=== PATIENT | male | born 1960 | race Caucasian/White ===

== ENCOUNTER → 2018-04-02 13:25 | Outpatient (CLI) | payer MEDICARE ==
[2012-11-04 12:18] VITALS: BMI 24.2
[~2018-04-02 13:25] MED LIST: AMITRIPTYLINE100 MG PO; ASPIRIN EC81 M1 PO; BACTRIM DS TABL1 TAB PO; NORVASC5 MG PO; OMEPRAZOLE20 M1 PO
[2018-04-28 06:05] VITALS: BMI 23.4
== END | disposition home or self-care (01) ==
LOC: D.LABREF 13:25
DX: N39.0 Urinary tract infection, site not specified (principal)

== ENCOUNTER 2018-04-28 05:40 | Day surgery (SDC) | payer MEDICARE ==
[2018-04-27 09:33] LABS: HEMATOCRIT 45.8 % (42.0-54.0); HEMOGLOBIN 15.9 g/dL (13.5-17.5); MCH 33.9 pg (26.0-34.0); MCHC 34.7 g/dL (31.0-37.0); MCV 97.7 fL (80.0-100.0); MEAN PLATELET VOLUME 9.8 fL (7.4-10.4); RBC 4.69 10x6/uL (4.20-6.10); WBC 7.6 10x3/uL (4.8-10.8)
[2018-04-27 09:45] LABS: ANION GAP 9.5 mmol/L (8-16); CARBON DIOXIDE 29.8 mmol/L (21.0-32.0); CREATININE - SERUM 1.4 mg/dL (0.6-1.3); POTASSIUM - SERUM 4.3 mmol/L (3.5-5.1)
[~2018-04-28] VITALS: Ht 172.7 cm; Wt 69.9 kg
--- NOTE | ~2018-04-28 | OP ---
PATIENT NAME: Jackie BERGER MEDICAL RECORD: [id number] :56 LOCATION:.[facility] ADMISSION DATE: SURGEON: DIPAK WAGONER MD DATE OF OPERATION: 04/28/2018 SURGEON: Dipak Wagoner MD ANESTHESIA: MAC by Guille Lovelace CRNA. PREOPERATIVE DIAGNOSIS: Elevated PSA of 5.28. PROCEDURE: Transrectal ultrasound and prostate biopsy. FINDINGS: 43 gram prostate with intraprostatic stones, no hypoechoic areas. BLOOD LOSS: None. CLINICAL HISTORY: This is a 57-year-old male, who was found to have an elevated PSA of 5.28 on recent testing. He does not have a family history of prostate cancer. He comes today to have a prostate biopsy performed. He is allergic to NORCO. He was given Ancef aviation manager to the OR. DESCRIPTION OF PROCEDURE: The patient was given IV sedation. He was then placed into lithotomy position. A transrectal ultrasound probe was introduced and prostate size measurements were obtained. The prostate size was estimated at 43 grams. We then performed sextant biopsies with at least 3 cores from every sextant. Once all the specimens were obtained, the procedure was terminated. The patient was awakened and brought back to his preoperative holding area. I will see him in followup next week to review the pathology with him. TRANSINT:[id number] Voice Confirmation ID: [id number] DOCUMENT ID: [id number] DIPAK WAGONER MD at 1532 CC: [id number] DICTATION DATE: 04/28/18812 HARDWOOD FALLER: 04/28/18 1119 PRE [facility] [address] [place] [address]
[2018-04-28 06:05] VITALS: BP 105/71; Ht 172.7 cm; Wt 69.9 kg
== END 2018-04-28 23:00 | disposition home or self-care (01) ==
LOC: D.OPS 05:40
PROVIDERS: Anesthesiology
DX: R97.20 Elevated prostate specific antigen [PSA] (principal)

== ENCOUNTER → 2018-06-01 10:14 | Outpatient (CLI) | payer MEDICARE ==
[2018-04-28 06:05] VITALS: BMI 23.4
== END | disposition home or self-care (01) ==
LOC: D.NM 10:14
DX: C61 Malignant neoplasm of prostate (principal)

== ENCOUNTER → 2019-02-07 18:15 | Outpatient (CLI) | payer MEDICARE ==
[2018-04-28 06:05] VITALS: BMI 23.4
== END | disposition home or self-care (01) ==
LOC: D.LABREF 18:15
PROVIDERS: ATTEND Urology
DX: R31.9 Hematuria, unspecified (principal); R82.5 Elevated urine levels of drugs, medicaments and biological substances; D72.829 Elevated white blood cell count, unspecified

== ENCOUNTER 2019-03-08 09:30 | Day surgery (SDC) | payer MEDICARE ==
[2019-03-07 15:36] LABS: BASOPHILS 0.4 % (0-2); EOSINOPHILS 7.2 % (0-7); HEMATOCRIT 44.2 % (42.0-54.0); HEMOGLOBIN 15.4 g/dL (13.5-17.5); IMMATURE GRANULOCYTES 0.1 % (0-5); LYMPHOCYTES 32.7 % (15-50); MCH 32.9 pg (26.0-34.0); MCHC 34.8 g/dL (31.0-37.0); MCV 94.4 fL (80.0-100.0); MEAN PLATELET VOLUME 9.7 fL (7.4-10.4); MONOCYTES 8.5 % (2-11); NEUTROPHILS 51.1 % (40-80); PLATELET COUNT 209 10x3/uL (130-400); RBC 4.68 10x6/uL (4.20-6.10); RDW 14.7 % (11.5-14.5); WBC 8.2 10x3/uL (4.8-10.8)
[2019-03-07 15:44] LABS: APTT 26.2 SECONDS (22.8-39.4); INR 0.95 (0.85-1.17); PROTIME 12.2 SECONDS (11.6-15.0)
[~2019-03-08] VITALS: Ht 172.7 cm; Wt 69.4 kg
[~2019-03-08 09:30] MED LIST changes: +ALBUTEROL SULF8.5 GM INH; +AMOXICILLIN500 M1 PO; +FLOMAX0.4 MG PO; +NORVASC10 MG PO; -NORVASC5 MG PO; +PROTONIX40 MG PO
[2019-03-08 13:38] VITALS: BP 128/87; Ht 172.7 cm; Wt 69.4 kg
[2019-03-08] MEDS ORDERED: OXYBUTYNIN CHLOR5 M1 PO (18:12)
--- NOTE | 2019-03-08 19:37 | OP ---
PATIENT NAME: Jackie BERGER MEDICAL RECORD: [id number] :56 LOCATION:[facility] ADMISSION DATE: SURGEON: VIOLETTE WAGONER MD DATE OF OPERATION: 03/08/2019 SURGEON: Violette Wagoner MD ANESTHESIA: TIVA by Dr. William Taveras. DIAGNOSES: Prostate cancer, Aayush score 3+3, stage T1C, bladder outlet obstruction, recurrent urinary tract infections, incomplete bladder emptying with postvoid residual of 194 mL. IPSS score is 32 and quality of life score is 6. PROCEDURE: UroLift times 6. FINDINGS: Bilateral lateral lobe obstruction with no median lobe. Heavily trabeculated bladder with cellules and diverticula. No bladder tumors. ESTIMATED BLOOD LOSS: Minimal. CLINICAL HISTORY: This is a 58-year-old male, who has recurrent urinary tract infections and bladder outlet obstruction. He was found to have an elevated PSA of 5.28. On transrectal ultrasound, the prostate size was 43 grams. He had a pathology report on the biopsy of Aayush 3+3 cancer. He has a stage T1C cancer. This is currently managed with observation. He has quite significant voiding symptoms including incomplete bladder emptying with a postvoid residual of 194 mL. He wishes to have the UroLift procedure done. He is ALLERGIC TO NORCO. We gave him Ancef insulation manager to the OR. DESCRIPTION OF PROCEDURE: The patient was given IV sedation. He was placed in lithotomy position and prepped and draped. The UroLift scope was introduced. He has a long obstructive bilateral lateral lobe hyperplasia. We started with 2 units in the bladder neck region. They were placed, 1.5 cm distal to the bladder neck at the anterolateral sulcus. One unit was placed on each side. We then placed 2 more units at the level of the verumontanum at the end of the lateral sulcus with 1 unit placed on each side. Looking with the obturator, we saw that there was still occlusion of the urethra in the mid portion of the urethra. We put 2 more units at the mid level of the urethra at the mid depth. With these [address], he had a nice open anterior urethral channel. A 16-Central African Simmons catheter was then put into the bladder and put to bag drainage. The balloon was inflated with 10 mL of sterile water. I will see him next week in followup to have the catheter removed for a voiding trial. TRANSINT:[id number] Voice Confirmation ID: [id number] DOCUMENT ID: [id number] VIOLETTE WAGONER MD at 1937 CC: [id number] DICTATION DATE: 03/08/191728 SALES AGENT FINANCIAL REPORT SERVICE: 03/08/191917 [facility] [address] [place] [id number]
--- NOTE | 2019-03-08 19:40 | NUR ---
DEMONSTRATED TO PATIENT AND SPOUSE HOW TO CHANGE ELIZABETH DRAINAGE BAG TO LEG BAG, ELIZABETH CARE EDUCATION GIVEN, SPOUSE STATES SHE WORKS AT A [employer] AND HAS PERFORMED THIS TASK AND IS FAMILIAR WITH IT. WRIST PIV DC'D WITH TIP INTACT. DISCHARGE INSTRUCTIONS REVIEWED WITH PATIENT AND SPOUSE. DISCHARGED HOME VIA WHEELCHAIR TO PRIVATE VEHICLE WITH SPOUSE AT 1950
== END 2019-03-08 19:50 | disposition home or self-care (01) ==
LOC: D.OPS 09:30 → D.PAN 13:15 → D.OPS 14:00 → D.PAN 14:00 → D.OPS 19:50
PROVIDERS: Anesthesiology; ATTEND Urology
DX: C61 Malignant neoplasm of prostate (principal); N40.1 Benign prostatic hyperplasia with lower urinary tract symptoms; N13.8 Other obstructive and reflux uropathy; N32.89 Other specified disorders of bladder; N32.3 Diverticulum of bladder; Z01.812 Encounter for preprocedural laboratory examination

== ENCOUNTER → 2019-04-04 08:01 | Outpatient (CLI) | payer MEDICARE ==
[2019-03-08 13:38] VITALS: BMI 23.7
[~2019-04-04 08:01] MED LIST changes: +OXYBUTYNIN CHLOR5 M1 PO
== END | disposition home or self-care (01) ==
LOC: D.US 03-31 09:00
PROVIDERS: ATTEND Internal Medicine Gastroenterology
DX: R10.10 Upper abdominal pain, unspecified (principal); R11.2 Nausea with vomiting, unspecified; R63.4 Abnormal weight loss

== ENCOUNTER → 2019-06-28 12:18 | Outpatient (CLI) | payer MEDICARE, OTHER ==
[2019-03-08 13:38] VITALS: BMI 23.7
== END | disposition home or self-care (01) ==
LOC: D.RT 12:18
PROVIDERS: ATTEND Internal Medicine Pulmonary Disease
DX: J44.9 Chronic obstructive pulmonary disease, unspecified (principal)

== ENCOUNTER → 2019-07-21 09:10 | Outpatient (CLI) | payer MEDICARE, OTHER ==
[2019-03-08 13:38] VITALS: BMI 23.7
== END | disposition home or self-care (01) ==
LOC: D.CT 07-18 08:30
PROVIDERS: ATTEND Internal Medicine Pulmonary Disease
DX: R93.89 Abnormal findings on diagnostic imaging of other specified body structures (principal)

== ENCOUNTER → 2021-02-20 08:35 | Outpatient (CLI) | payer MEDICARE, OTHER ==
[2019-03-08 13:38] VITALS: BMI 23.7
--- NOTE | ~2021-02-20 | EC ---
PATIENT:Jackie BERGER DATE OF SERVICE: 02/20/21 SEX: M MEDICAL RECORD: [id number] DATE OF : 56 LOCATION:[facility] AGE OF PATIENT: 60 ADMISSION DATE: 02/20/21 REFERRING PHYSICIAN: INTERPRETING PHYSICIAN: LIZ DARLING MD ECHOCARDIOGRAM REPORT ECHO CHARGES 4 ECHO COMPLETE Date: 02/20/21 CLINICAL DIAGNOSIS: ANGINA/HEART MURMUR ECHOCARDIOGRAPHIC MEASUREMENTS (adult normal given) AC root (d.<3.7cm) 3.8 cm LV Septum d (<1.2 cm> 1.2 cm Valve Excursion 1.5 cm LV Septum (systole) 1.5 cm Left Atria (s.<4.0cm> 3.3 cm LVPW d(<1.2cm) 1.7 cm RV (d.<2.3cm) 3.5 cm LVPW (sytole) 1.8 cm LV diastole(<5.6CM) 4.1 cm MV E-F(>70mm/sec) cm LV systole 3.0 cm LVOT Diameter 1.9 cm MV exc.(>10mm) 1.5 cm Est.ejection fraction (50-75%) % DOPPLER: LVIT cm/sec A 66.0 cm/sec E 82.0 cm/sec LA cm/sec RVSP 20 mmHg LVOT 114 cm/sec AOP1/2T m/s Asc. Ao 136 cm/sec RVOT 89 cm/sec RA cm/sec PA 95 cm/sec AV Gradient Peak 7.38 mmHg AV Mean 4.08 mmHg AV Area 2.6 cm MV Gradient Peak 2.00 mmHg MV Mean 0.80 mmHg MV Area cm COMMENTS: Burial Vault Setter: 2 MARTHA PERAZA Employment Officer: 3 Dr. Morgan TAPE# PACS Pericardial Effusion N DATE OF SERVICE: FINDINGS: Borderline LVH. LV internal dimension is normal. Wall motion is normal. EF is greater than or equal to 55%. Aortic valve is tricuspid. No evidence of stenosis by Doppler interrogation. Left atrium is normal at 3.3 cm. Mitral valve shows no prolapse. Trace MR. Right side is grossly normal. Trace TR. TRANSINT:[id number] Voice Confirmation ID: [id number] DOCUMENT ID: [id number] ECHOCARDIOGRAM REPORT [id number] Jackie BERGER LIZ DARLING MD CC: [id number] DICTATION DATE: 02/20/21 1639 SEED LABORATORY ASSISTANT: 02/21/21 0014 DEP CLI 02/20/21 [place] [id number] [place] [id number]
== END | disposition home or self-care (01) ==
LOC: D.HCCARDIO 02-12 09:00 → D.HCCECHO 02-12 09:30 → D.HCCARDIO 02-12 09:30
PROVIDERS: ATTEND Internal Medicine Interventional Cardiology
DX: I20.9 Angina pectoris, unspecified (principal); R01.1 Cardiac murmur, unspecified; I48.91 Unspecified atrial fibrillation

== ENCOUNTER → 2021-02-27 08:21 | Outpatient (CLI) | payer MEDICARE, OTHER ==
[2019-03-08 13:38] VITALS: BMI 23.7
== END | disposition home or self-care (01) ==
LOC: D.HCCARDIO 08:21
PROVIDERS: ATTEND Internal Medicine Cardiovascular Disease
DX: I20.9 Angina pectoris, unspecified (principal)

== ENCOUNTER 2021-03-20 06:38 | Day surgery (SDC) | payer MEDICARE, OTHER ==
[~2021-03-20] VITALS: Ht 172.7 cm; Wt 72.4 kg
--- NOTE | ~2021-03-20 | HEMODYNAMI ---
PATIENT:Jackie BERGER MEDICAL RECORD: [id number] : 56 LOCATION:[facility] ADMISSION DATE: 03/20/21 Generatedon:18:55 Patient name: Jackie BERGER Patient #: [id number] SSN: : 1960 Date of study: 03/20/2021 Page: Of Hemodynamic Procedure Report Patient Data Patient Demographics Procedure consent was obtained First Name: Jackie Gender: Male Last Name: AB : 1960 Middle Initial: J Age: 60 year(s) Patient #: [id number] Race: Unknown Additional ID: [id number] Contact details [address]: [address] [place] [address] State: [place] City: [place] Zip code: [address] Admission Admission Data Admission Date: 03/20/2021 Admission Time: 6:38 Procedure Procedure Types Cath Procedure Diagnostic Procedure LHC LHC w/Coronaries FFR/IVUS FFR Initial Sedation Charges Moderate Sedation 10-24 minutes Procedure Description Procedure Date Procedure Date: 03/20/2021 Procedure Start Time: 8:30 Procedure End Time: 8:51 Procedure Staff Name Function Javier Cline RT Monitor [employer] RT Scrub Carrington Abreu RN Nurse Philip Rocha MD Performing Physician Procedure Data Cath Procedure Fluoroscopy Diagnostic fluoroscopy Total fluoroscopy Time: 7.6 time: 7.6 min min Diagnostic fluoroscopy Total fluoroscopy dose: 534 dose: 534 mGy mGy Contrast Material Contrast Material Type Amount (ml) Isovue 370 109 Entry Location Entry Primary Successful Side Size Upsize Upsize Entry Closure Rodrigues ccessful Closure Location (Fr) 1 (Fr) 2 (Fr) Remarks Device Remarks Radial Right 6 Fr Mechanical artery Short Compression Estimated blood loss: 5 ml Diagnostic catheters Device Type Used For End Catheter Placement DIAGNOSTIC [place] 110cm 5 LV Angiography Fr catheter ([id number]) Procedure Complications No complications Procedure Medications Medication Administration Route Dosage 0.9% NaCl I.V. 100 ml/hr Oxygen etCO2 Nasal cannula 2 l/min Heparin Flush Bag added to field 2 bags (1000units/500ml NS) Lidocaine 2% added to field 20 Versed I.V. 1 mg Fentanyl I.V. 50 mcg Versed I.V. 1 mg Fentanyl I.V. 50 mcg Versed I.V. 1 mg Fentanyl I.V. 50 mcg Versed I.V. 1 mg Fentanyl I.V. 50 mcg Heparin Bolus I.V. 2000 units Hemodynamics Rest Heart Rate: 84 (bpm) Pressure Samples Time Site Value (mmHg) Purpose Heart Use Rate(bpm) 8:35 LV 92/3,7 Snapshot 86 8:35 LV 92/1,5 Snapshot 70 Gradients Valve Time Site Site Mean SEP/DFP Peak To Heart Use 1 2 (mmHg) (sec/min) Peak Rate (mmHg) (bpm) Aortic 8:35 LV AO 91 Snapshots Pre Cath Intra NCS Post Cath Vital Signs Time Heart Resp SPO2 etCO2 NIBP (mmHg) Rhythm Pain Sedation Rate (ipm) (%) (mmHg) Status Level (bpm) 8:13:13 98 0 137/91(111) NSR 0 (11) 10(A) , No pain 8:17:23 98 24.1 135/95(121) NSR 0 (11) 10(A) , No pain 8:21:31 90 16 96 16.5 132/96(113) NSR 0 (11) 10(A) , No pain 8:25:41 86 13 95 28.6 129/85(108) NSR 0 (11) 10(A) , No pain 8:29:49 93 10 97 1.5 110/89(101) NSR 0 (11) 10(A) , No pain 8:33:54 93 10 91 0 107/76(101) NSR 0 (11) 10(A) , No pain 8:38:00 98 11 91 0.7 106/69(86) NSR 0 (11) 10(A) , No pain 8:42:04 96 11 92 10.5 105/75(100) NSR 0 (11) 10(A) , No pain 8:46:08 93 10 93 9 98/74(93) NSR 0 (11) 10(A) , No pain 8:50:09 95 12 93 18.8 107/74(95) NSR 0 (11) 10(A) , No pain Medications Time Medication Route Dose Verified Delivered Reason Notes Effectiveness by by 8:19:07 0.9% NaCl I.V. 100 Philip Carrington used for ml/hr [facility] Chris Abreu RN procedure 8:19:54 Oxygen etCO2 2 Philip Carrington used for Nasal l/min [facility] Chris Abreu RN procedure cannula 8:20:02 Heparin Flush added 2 Philip Philip used for Bag to bags [facility] procedure (1000units/500ml field MD HEREDIA NS) 8:20:10 Lidocaine 2% added 20ml Philip Philip for local to vial [facility] anesthetic field MD HEREDIA 8:27:25 Versed I.V. 1 mg Philip Carrington for sedation [facility] Chris Abreu RN, MD 8:27:30 Fentanyl I.V. 50 Philip Carrington for sedation mcg [facility] Chris Abreu RN, MD 8:29:10 Versed I.V. 1 mg Philip Carrington for sedation [facility] Chris Abreu RN, MD 8:29:14 Fentanyl I.V. 50 Philip Josey for sedation mcg [facility] Chris Abreu RN, MD 8:31:11 Versed I.V. 1 mg Philip Carrington for sedation [facility] Chris Abreu RN, MD 8:31:15 Fentanyl I.V. 50 Philip Carrington for sedation mcg [facility] Chris Abreu RN, MD 8:33:21 Versed I.V. 1 mg Philip Carrington for sedation [facility] Chris Abreu RN, MD 8:33:25 Fentanyl I.V. 50 Philip Carrington for sedation mcg [facility] Chris Abreu RN, MD 8:39:08 Heparin Bolus I.V. 2000 Philip Josey for units [facility] Chris Abreu RN anticoagulation Procedure Log Time Note 7:59:08 Procedure Status Elective Heart Cath (OP). 7:59:11 Carrington Abreu RN sent for patient. Start room use. 7:59:13 Time tracking: Regular hours (M-F 7:00 - 5:00) 7:59:18 Plan of Care:Hemodynamics will remain stable., Cardiac rhythm will remain stable., Comfort level will be maintained., Respiratory function will remain adequate., Patient/ family verbilizes understanding of procedure., Procedure tolerated without complication., Recovers from procedure without complications.. 8:03:55 Patient received from Pre/Post Procedure Room to [facility] 1 Alert and oriented. Tansferred to table in Supine position. 8:03:56 Warm blankets applied, and elissa hugger turned on for patient comfort. 8:04:03 Signed procedure consent form obtained from patient. 8:04:03 Correct patient and procedure confirmed by team. 8:04:04 ECG and BP/O2 sat monitors applied to patient. 8:08:12 Vital chart was started 8:17:13 Baseline sample Acquired. 8:18:31 Baseline sample Acquired. 8:18:35 Rhythm: sinus rhythm 8:18:38 Full Disclosure recording started 8:18:41 H&P Date Dictated: 03/20/2021 H&P Addendum completed by physician on day of procedure. (MUST COMPLETE FOR ALL OUTPATIENTS). 8:18:52 Pre-procedure instructions explained to patient. 8:18:52 Pre-op teaching completed and patient verbalized understanding. 8:18:54 Family in patients room. 8:18:58 Patient NPO since Midnight. 8:19:05 Is the patient allergic to Iodine/contrast media? No. 8:19:07 0.9% NaCl 100 ml/hr I.V. was administered by Carrington Abreu RN; used for procedure; Verbal order read back and verified. 8:19:13 Is patient on blood thinner?No 8:19:16 Patient diabetic? No. 8:19:54 Oxygen 2 l/min etCO2 Nasal cannula was administered by Carrington Abreu RN; used for procedure; Verbal order read back and verified. 8:20:02 Heparin Flush Bag (1000units/500ml NS) 2 bags added to field was administered by Philip Rocha MD; used for procedure; Verbal order read back and verified. 8:20:10 Lidocaine 2% 20ml vial added to field was administered by Philip Rocha MD; for local anesthetic; Verbal order read back and verified. 8:21:04 ----Pre-sedation anethsthesia assessment.---- 8:21:07 Previous problem with sedation/anesthesia? No ? 8:21:09 Snore? Yes 8:21:16 Sleep apnea? Yes 8:21:18 Deviated septum? No 8:21:20 Opens mouth fully? Yes 8:21:21 Sticks out tongue? Yes 8:21:26 Airway obstruction? Yes COPD 8:21:30 Dentures? No ? 8:21:35 Pre procedure: right dorsailis pedis pulse 2+ Normal; easily identifiable; not easily obliterated 8:21:41 Modified Acosta's test Ulnar < 7 seconds 8:22:30 Patient pain scale 0/10 ?. 8:22:34 IV patent on arrival in left antecubital with 0.9% NaCl at [facility]. 8:22:39 Lab results completed and on chart. 8:25:22 Risk of Mortality: 0.1 8:25:26 Risk of blood transfusion: 1.2 8:25:29 Risk of AMRIT: 1.4 8:25:33 Right Radial & Right Groin area was prepped with chlora-prep and draped in sterile fashion 8:25:35 Alarms reviewed by R. N. 8:25:35 Sharps counted by scrub and verified by R.N. 8:25:36 Physician arrived 8:25:40 --------ALL STOP TIME OUT------ 8:25:40 Final Timeout: patient, procedure, and site verified with staff and physician. All members of the team are in agreement. 8:25:42 Right Radial & Right Groin site verified by team. 8:25:46 Fire Safety Assessment: A--An alcohol-based skin anteseptic being used preoperatively., C--Open oxygen or nitrous oxide is being used., D--An ESU, laser, or fiber-optic light is being used. 8:25:51 Physical assessment completed. ASA score P 2 - A patient with mild systemic disease as per Javier Cline RT(R). 8:26:24 2) 60-89 Mildly reduced kidney function, and other findings (as for stage 1) point to kidney disease. 8:26:49 Maximum allowable contrast dose (3.7 X eGFR X 0.75)180 ml. 8:26:54 Sedation plan: IV Moderate Sedation Medication:Versed, Fentanyl 8:27:22 Use device set Radial Dx or PCI 8:27:23 ACIST Syringe (49093) opened to sterile field. 8:27:23 Medline Cath Pack ([id number]) opened to sterile field. 8:27:23 Bag Decanter () opened to sterile field. 8:27:24 ACIST Hand Control (13771) opened to sterile field. 8:27:24 ACIST Manifold (29818) opened to sterile field. 8:27:25 Versed 1 mg I.V. was administered by Carrington Abreu RN; for sedation; Verbal order read back and verified. 8:27:25 Tegaderm 4 x 4 (1626W) opened to sterile field. 8:27:25 MBrace Wrist Support ([id number]) opened to sterile field. 8:27:28 EMERALD Guide Wire (496-093) opened to sterile field. 8:27:29 SHEATH 6FR RAIN (8407924) opened to sterile field. 8:27:30 Fentanyl 50 mcg I.V. was administered by Carrington Abreu RN; for sedation; Verbal order read back and verified. 8:27:30 ZEPHYR REGULAR TR BAND (283873) opened to sterile field. 8:28:37 Procedure started. 8:29:10 Versed 1 mg I.V. was administered by Carrington Abreu RN; for sedation; Verbal order read back and verified. 8:29:14 Fentanyl 50 mcg I.V. was administered by Carrington Abreu RN; for sedation; Verbal order read back and verified. 8:30:46 Local anesthetic to right radial artery with Lidocaine 2% by Javier GONZALEZ(R).INITIAL ACCESS ONLY 8:30:54 A 6 Fr Short sheath was inserted into the Right Radial artery 8:31:11 Versed 1 mg I.V. was administered by Carrington Abreu RN; for sedation; Verbal order read back and verified. 8:31:15 Fentanyl 50 mcg I.V. was administered by Carrington Abreu RN; for sedation; Verbal order read back and verified. 8:31:53 Zero performed for pressure channel P1 8:33:01 A DIAGNOSTIC [place] 110cm 5 Fr catheter (060683) was advanced over the wire and used for LV Angiography. 8:33:08 LV angiography performed. 8:33:11 LV gram done using VIEIRA 8:33:12 LV hemodynamics recorded. 8:33:15 Injector settings: Ml/sec: 5, Volume: 15, 8:33:21 Versed 1 mg I.V. was administered by Carrington Abreu RN; for sedation; Verbal order read back and verified. 8:33:25 Fentanyl 50 mcg I.V. was administered by Carrington Abreu RN; for sedation; Verbal order read back and verified. 8:35:45 EF : 55 % 8:35:47 LCA angiography performed. 8:36:55 RCA angiography performed. 8:38:03 INFLATOR Merit BasixCompak (PV2970) opened to sterile field. 8:38:16 ZEPHYR LARGE TR BAND (242413) opened to sterile field. 8:38:17 Sudan OmniWire (74433) opened to sterile field. 8:38:30 FFR/IVUS 8:38:37 Pressure wire advanced. 8:38:43 Baseline FFR 1.00. 8:38:54 Wire advanced across lesion. 8:38:56 LAD lesion measured at 1.05 with IFR 8:39:08 Heparin Bolus 2000 units I.V. was administered by Carrington Abreu RN; for anticoagulation; Verbal order read back and verified. 8:48:27 Wire removed. 8:48:32 Catheter exchanged over wire. 8:48:48 Sheath removed intact; hemostasis achieved with Mechanical Compression to the Right Radial artery. 8:48:50 Procedure ended.(Physican Out) 8:49:10 Fluoroscopy time 07.60 minutes. 8:49:15 Fluoroscopy dose: 534 mGy 8:49:15 Flurop Dose total: 534 8:49:22 Dose Area Product 42248 mGy/cm. 8:49:32 Contrast amount:Isovue 370 109ml. 8:49:35 Maximum allowable dose exceeded? No. 8:49:36 Sharps counted by scrub and verified by R.N. 8:49:38 [place] band inflated with 10cc of air. 8:49:40 Insertion/operative site no bleeding no hematoma. 8:49:48 Post right radial artery:stable 8:49:52 Post Procedure Pulses reassessed and unchanged 8:49:59 Post-procedure physical assessment completed. ASA score P 2 - A patient with mild systemic disease as per Javier Cline RT(R). 8:50:02 Post procedure rhythm: unchanged. 8:50:05 Estimated blood loss: 5 ml 8:50:06 Post procedure instruction explained to patient.Patient verbalizes understanding. 8:50:36 Procedure and supply charges have been captured, reviewed, submitted and are correct. 8:50:56 Procedure Complication : No complications 8:50:58 Vital chart was stopped 8:51:01 [facility] Findings: AUNG- will discuss options w/ pt 8:51:05 Operative report dictated upon procedure completion. 8:51:05 See physician's report for complete and final results. 8:51:07 Report given to Pre/Post Procedure Room. 8:51:11 Patient transfered to Pre/Post Procedure Room with Stretcher. 8:51:13 Procedure ended. 8:51:13 Full Disclosure recording stopped 8:51:19 End room use (Document Last) 8:52:39 Procedure type changed to Cath procedure, Diagnostic procedure, LHC, [facility] w/Coronaries, FFR/IVUS, FFR Initial, Sedation Charges, Moderate Sedation 10-24 minutes 8:53:54 ACT drawn and resulted at 362 seconds. (normal therapeutic range 180-240 seconds). Device Usage Item Name Manufacture Quantity Catalog Hospital Part Current Minima l Lot# / Number Charge Number Stock Stock Serial# Code ACIST Acist 1 40161 [id number] [id number] [id number] 20 Syringe Medical (09336) Systems Inc Medline Medline 1 [id number] 646101 82607 178646 5 Cath Pack ([id number]) Bag Microtek 1 2001S 396362 47781 642145 5 Decanter Medical Inc. () ACIST Hand Acist 1 68854 502571 861021 868484 5 Control Medical (83310) Systems Inc ACIST Acist 1 67562 177933 277830 169857 5 Manifold Medical (24153) Systems Inc Tegaderm 4 3M 1 1626W 857380 316220 392856 5 x 4 (1626W) MBrace Advanced 1 140-0250-00 931755 10131 770086 5 Wrist Vascular Support Dynamics ([id number]) EMERALD Cardinal 1 502-455 786241 977405 458034 5 Guide Wire Health (502-455) SHEATH 6FR Cardinal 1 3153214 729506 4623496 789468 5 [facility] Health (9561658) ZEPHYR Cardinal 1 295920 995130 4307500 794573 5 REGULAR TR Health BAND (126553) DIAGNOSTIC Terumo 1 40-7782 946543 711124 275979 5 [place] 110cm 5 Fr catheter (721676) INFLATOR Merit 1 [id number] 864093 380102 774838 15 [facility] Medical BasixCompak (WT8211) ZEPHYR Cardinal 1 946390 787667 5762683 529414 5 LARGE TR Health BAND (436709) Sudan Sudan 1 2615955 023488 47072 9902 5 OmniWire (06654) Signature Audit Higbee Stage Time Signature Unsigned Intra-Procedure 03/20/2021 Javier Cline RT(R) 8:53:55 AM Intra-Procedure 03/20/2021 Carrington Abreu RN 8:54:19 AM Intra-Procedure 03/20/2021 Philip Bailey 8:54:43 AM Chris HEREDIA Intra-Procedure 03/20/2021 Philip Bailey 8:55:17 AM Chris HEREDIA [facility] [address] [place] [address]
[2021-03-20] MEDS ORDERED: VITAMIN D21250 MC1 PO (07:16)
[2021-03-20] MEDS ORDERED: PEPCID40 MG PO (07:17)
[2021-03-20] MEDS ORDERED: ZANAFLEX4 MG PO (07:17)
[2021-03-20] MEDS ORDERED: ANORO ELLIPTA1 EACH INH (07:18)
[2021-03-20 07:19] VITALS: BP 140/99; Ht 172.7 cm; Wt 72.4 kg
[2021-03-20] MEDS ORDERED: CYANOCOBAL1000 MCG/4 SC (07:19)
[2021-03-20 07:31] LABS: HEMOGLOBIN 16.8 g/dL (13.5-17.5)
[2021-03-20 07:33] LABS: BASOPHILS 1.4 % (0-2); EOSINOPHILS 4.7 % (0-7); HEMATOCRIT 49.2 % (42.0-54.0); MCH 33.1 pg (26.0-34.0); MCHC 34.1 g/dL (31.0-37.0); MCV 97.1 fL (80.0-100.0); MEAN PLATELET VOLUME 8.1 fL (7.4-10.4); MONOCYTES 5.8 % (2-11); NEUTROPHILS 52.1 % (40-80); RBC 5.07 10x6/uL (4.20-6.10); RDW 14.7 % (11.5-14.5); WBC 9.6 10x3/uL (4.8-10.8)
[2021-03-20 07:38] LABS: PLATELET COUNT 296 10x3/uL (130-400)
[2021-03-20 07:54] LABS: ANION GAP 12.3 mmol/L (8-16); CALCIUM 9.1 mg/dL (8.5-10.1); CARBON DIOXIDE 26.5 mmol/L (21.0-32.0); CHOL - HDL RATIO 3.9 ratio (2.3-4.9); CREATININE - SERUM 1.2 mg/dL (0.6-1.3); LDL-HDL RATIO 2.5 ratio (1.5-3.5); POTASSIUM - SERUM 3.8 mmol/L (3.5-5.1)
--- NOTE | 2021-03-20 09:05 | NUR ---
ARRIVES TO ROOM 5 VIA STRETCHER S/P ANGIOGRAM. SEE TRIAL EXAMINER. PT PLACED ON MONITORS AND ALARMS ON. IV INFUSING PER ORDERS, DENIES PAIN OR NEEDS, SPOUSE AT BEDSIDE, CALL LIGHT WITHIN REACH
--- NOTE | 2021-03-20 09:20 | NUR ---
RESTING QUIETLY SITTING UP DRINKING COFFEE, DENIES PAIN OR NEEDS, VSS, NSR WITH NO ECTOPY, RIGHT WRIST WITH ZBAND IN PLACE PULSES PALPABLE CAP REFILL WNL, AREA C/D/I, IV INFUSING PER ORDERS, CALL LIGHT WITH IN REACH
--- NOTE | 2021-03-20 09:35 | NUR ---
VISITING WITH SISTER AT BEDSIDE SIPPING COFFEE, VSS, NSR NO ECTOPY, RIGHT WRIST WITH ZBAND IN PLACE C/D/I PULSES PALPABLE EXTREMITY PINK AND WARM CAP REFILL WNL, MOVES ALL FINGERS, DENIES PAIN OR NEEDS, IV INFUSING PER ORDERS, CALL LIGHT WITHIN REACH
--- NOTE | 2021-03-20 09:45 | NUR ---
NO CHANGES, VSS, NSR, SATS 92% RA, RIGHT WRIST WITH ZBAND IN PLACE PULSES PALPALBE EXTREMITY PINK AND WARM CAP REFILL WNL, MOVES ALL FINGERS, DENIES PAIN OR NEEDS, CALL LIGHT WITHIN REACH
--- NOTE | 2021-03-20 10:15 | NUR ---
ATTEMPT TO REMOVE 2CC AIR FROM FROM RIGHT WRIST WITH OOZING AND BLEEDING AIR RETURNED BLEEDING STOPPED, PULSES PALPABLE CAP REFILL WNL , DENIES PAIN OR NEEDS, VSS, NSR WITH NO ECTOPY , CALL LIGHT WITHIN REACH
--- NOTE | 2021-03-20 10:42 | NUR ---
3CC AIR REMOVED FROM ZBAND RIGHT WRIST WITH NO OOZING OR BLEEDING , DENIES PAIN, PULSES PALPABLE, CAP REFILL WNL , EXTREMITY PINK AND WARM
--- NOTE | 2021-03-20 10:50 | NUR ---
2CC AIR RELEASED FROM RIGHT WRIST ZBAND WITHOUT OOZING OR BLEEDING , PULSES PALPABLE , EXTREMITY PINK AND WARM CAP REFILL WNL, DENIES PAIN OR NEEDS, DISCHARGE TEACHING STARTED, VSS, NSR NO ECTOPY, CALL LIGHT WITH IN REACH, VOID 200 CC CLEAR YELLOW URINE
--- NOTE | 2021-03-20 11:00 | NUR ---
REMAINING AIR REMOVED FROM RIGHT ZBAND WITH NO OOZING OR BLEEDING, PULSES PALPABLE, EXTREMITY PINK AND WARM , CAP REFILL WNL, DENIES PAIN OR NEEDS, PT UP TO DRESS AND AMBULATES TO BATHROOM TO VOID WITHOUT DIFFICULTY. DISCHARGE TEACHING COMPLETED AT THIS TIME PT AND SPOUSE VERBALIZE UNDERSTANDING REGARDING ALL INSTUCTIONS., VSS, NSR ON MONITORS.
--- NOTE | 2021-03-20 11:25 | NUR ---
PT DISCHARGED PER ORDERS TAKEN TO FAMILY CAR VIA WHEELCHAIR
--- NOTE | 2021-03-21 08:29 | OP ---
PATIENT NAME: Jackie BERGER MEDICAL RECORD: [id number] LOCATION:[facility] ADMISSION DATE: SURGEON: LIZ DARLING MD DATE OF OPERATION: 03/20/2021 PROCEDURE: Left heart catheterization, selective coronary angiography plus IFR wire to the LAD, right radial approach. CATHETERS: Radial sheath, [place] catheter. The procedure was well tolerated. The patient was returned to the murray. Sheath removed. A TR band was placed. FINDINGS: Left ventriculography in 30-degree VIEIRA view: Normal wall motion, normal systolic function. CORONARY ANATOMY: Left main: Free of disease. LAD: Has questionable stenosis in the mid portion; however, this is nonsignificant with normal IFR wire readings. Circumflex: Large vessel, free of disease. Right coronary artery: Right dominant, free of disease. IMPRESSION: Normal left ventricular systolic function. No significant coronary artery disease including the IFR wire. TRANSINT:[id number] Voice Confirmation ID: [id number] DOCUMENT ID: [id number] LIZ DARLING MD at 0829 CC: [id number] DICTATION DATE: 03/20/21912 [employer] ANIMAL CARETAKER: 03/20/21 0929 [facility] 03/20/[address] [facility] [address] [place] [address]
== END 2021-03-20 11:25 | disposition home or self-care (01) ==
LOC: D.CATH 06:38
PROVIDERS: ATTEND Internal Medicine Interventional Cardiology
DX: I20.9 Angina pectoris, unspecified (principal); I48.91 Unspecified atrial fibrillation; I10 Essential (primary) hypertension; R94.39 Abnormal result of other cardiovascular function study